=== PATIENT | male | born 1950 | race Two or more races ===

== ENCOUNTER 2019-05-26 07:22 | Outpatient (CLI) | payer OTHER | END 2019-05-26 07:30 | disposition home or self-care (01) | LOC: NUCLEAR 07:22 | DX: R94.31 Abnormal electrocardiogram [ECG] [EKG] (principal) | CPT/HCPCS: 78452; 93017; A9500; J0153 ==

== ENCOUNTER 2019-06-09 09:40 | Outpatient (CLI) | payer OTHER | END 2019-06-09 09:44 | disposition home or self-care (01) | LOC: SONOGRAMA 09:40 | DX: N18.2 Chronic kidney disease, stage 2 (mild) (principal); K76.1 Chronic passive congestion of liver ==

== ENCOUNTER 2019-06-09 10:11 | Outpatient (CLI) | payer OTHER | END 2019-06-09 12:03 | disposition home or self-care (01) | LOC: NUCLEAR 10:11 | DX: I70.213 Atherosclerosis of native arteries of extremities with intermittent claudication, bilateral legs (principal) ==

== ENCOUNTER 2019-06-28 09:12 | Outpatient (CLI) | payer OTHER | END 2019-06-28 09:24 | disposition home or self-care (01) | LOC: NUCLEAR 09:12 | DX: I65.23 Occlusion and stenosis of bilateral carotid arteries (principal); Z87.891 Personal history of nicotine dependence ==